=== PATIENT | male | born 1990 | race Caucasian/White ===

== ENCOUNTER 2016-08-29 14:30 | Emergency (ER) | payer SELFPAY ==
[2016-08-29 14:38] VITALS: BP 144/84
--- NOTE | 2016-08-29 15:22 | ER Document Report ---
ED Medical Screen (RME) - General Chief Complaint: Numbness Stated Complaint: CHEST CONGESTION,COLD,BACK PAIN,RIGHT ARM NUMBNESS Time Seen by Provider: 08/29/16 15:14 Notes: This 26-year-old pack-a-day smoker comes emergency room complaining of a 2-3 week history of congested cough. He reports he has developed a thick green- yellow sputum. He has pain in his chest with deep breath. He also reports a numbness to the right volar medial forearm going into the hand with numbness to the hand and fingers. There is also some pain associated with this. He also reports noticed some right facial numbness today. There is no motor deficit. Wheezes and rhonchi when the patient takes a deep breath and coughs. I have greeted and performed a rapid initial assessment of this patient. A comprehensive ED assessment and evaluation of the patient, analysis of test results and completion of the medical decision making process will be conducted by additional ED providers. TRAVEL OUTSIDE OF THE [place] IN LAST 30 DAYS: No - Related Data Allergies/Adverse Reactions: No Known Allergies Allergy (Verified 08/29/16 15:02) Past Medical History Pulmonary Medical History: Denies: Hx Asthma Neurological Medical History: Reports: Hx Migraine Renal/ Medical History: Denies: Hx Peritoneal Dialysis Past Surgical History: Reports: Hx Oral Surgery - Immunizations Hx Diphtheria, Pertussis, Tetanus Vaccination: No Physical Exam - Vital signs Vitals: Temp Pulse Resp BP Pulse Ox 98.3 F 90 14 144/84 H 99 08/29/16 14:36 08/29/16 14:36 08/29/16 14:36 08/29/16 14:36 08/29/16 14:36 Course - Vital Signs Vital signs: Temp Pulse Resp BP Pulse Ox 98.3 F 90 14 144/84 H 99 08/29/16 14:36 08/29/16 14:36 08/29/16 15:02 08/29/16 14:36 08/29/16 14:36
--- NOTE | 2016-08-29 15:37 | ER Document Report ---
ED General - General Chief Complaint: Numbness Stated Complaint: CHEST CONGESTION,COLD,BACK PAIN,RIGHT ARM NUMBNESS Time Seen by Provider: 08/29/16 15:14 Mode of Arrival: Ambulatory Information source: Patient Notes: Pt is a 26 year old male who presents to the ER today for right hand numbness after sleeping on it 2 nights ago. He denies injury, ever having this happen before, pain in neck. He also has cough, sinus pressure, runny nose x 2 weeks. He admits to chills but denies fever. He admits to some shortness of breath but no wheezing. TRAVEL OUTSIDE OF THE [place] IN LAST 30 DAYS: No - Related Data Allergies/Adverse Reactions: No Known Allergies Allergy (Verified 08/29/16 15:02) Past Medical History - General Information source: Patient - Social History Smoking Status: Unknown if Ever Smoked Family History: Reviewed & Not Pertinent Patient has suicidal ideation: No Patient has homicidal ideation: No Pulmonary Medical History: Denies: Hx Asthma Neurological Medical History: Reports: Hx Migraine Renal/ Medical History: Denies: Hx Peritoneal Dialysis Past Surgical History: Reports: Hx Oral Surgery - Immunizations Hx Diphtheria, Pertussis, Tetanus Vaccination: No Review of Systems - Review of Systems Constitutional: See HPI EENT: See HPI Cardiovascular: No symptoms reported Respiratory: See HPI Gastrointestinal: No symptoms reported Genitourinary: No symptoms reported Male Genitourinary: No symptoms reported Musculoskeletal: See HPI Skin: No symptoms reported Hematologic/Lymphatic: No symptoms reported Neurological/Psychological: See HPI Physical Exam - Vital signs Vitals: Temp Pulse Resp BP Pulse Ox 98.3 F 90 14 144/84 H 99 08/29/16 14:36 08/29/16 14:36 08/29/16 14:36 08/29/16 14:36 08/29/16 14:36 - Notes Notes: PHYSICAL EXAMINATION: GENERAL: Well-appearing and in no acute distress. HEAD: Atraumatic, normocephalic. EYES: Pupils equal round and reactive to light, extraocular movements intact, sclera anicteric, conjunctiva are normal. ENT: ear canals without erythema or foreign body, TMs pearly chowdhury with good bony landmarks, nares with mucoid discharge, oropharynx clear without exudates. Moist mucous membranes. NECK: Normal range of motion, supple without lymphadenopathy LUNGS: Cough, otherwise CTAB and equal. No wheezes rales or rhonchi. HEART: Regular rate and rhythm without murmurs ABDOMEN: Soft, no tenderness. No guarding, no rebound BACK: no vertebral tenderness, normal ROM GI/: no CVA tenderness EXTREMITIES: Good and equal strength bilaterally, good pens and pencils dipper strength bilaterally , normal sensation to both hands, normal range of motion, no pitting edema. No cyanosis. NEUROLOGICAL: Cranial nerves grossly intact. Normal sensory/motor exams. PSYCH: Normal mood, normal affect. SKIN: Warm, Dry, normal turgor, no rashes or lesions noted Course - Re-evaluation Re-evalutation: 08/29/16 16:33 pt holding right hand at a strange angle and flops it around making it appear numb, but has normal sensation and pens and pencils dipper strength is good and equal bilaterally. chest x ray clear. will place pt in brace here for possible carpal tunnel. - Vital Signs Vital signs: Temp Pulse Resp BP Pulse Ox 98.3 F 90 14 144/84 H 99 08/29/16 14:36 08/29/16 14:36 08/29/16 15:02 08/29/16 14:36 08/29/16 14:36 Procedures - Immobilization Right Hand Time completed: 16:37 Pre-Proc Neuro Vasc Exam: Normal Immobilizer type: Cock-up Performed by: RN Post-Proc Neuro Vasc Exam: Normal Alignment checked and good: Yes Discharge - Discharge Clinical Impression: Numbness and tingling in right hand, Bronchitis Back pain Qualifiers: Back pain location: back pain in unspecified location Chronicity: acute Back pain laterality: right Qualified Code(s): M54.9 - Dorsalgia, unspecified Sinusitis Qualifiers: Sinusitis location: other Chronicity: acute Recurrence: non-recurrent Qualified Code(s): J01.80 - Other acute sinusitis Condition: Stable Disposition: HOME, SELF-CARE Instructions: Carpal Tunnel Syndrome ([facility]), Bronchitis ([facility]), Sinusitis ([facility]) Additional Instructions: Return immediately for any new or worsening symptoms. Follow up with primary care provider, call tomorrow to make followup appointment. The neurologist if numbness is not resolved in 5 days. Prescriptions: Amoxicillin 500 mg PO TID #30 capsule Cyclobenzaprine HCl [Flexeril 10 mg Tablet] 10 mg PO TID PRN #15 tablet PRN Reason: Guaifenesin/D-Methorphan Hb [Robitussin Dm S-F Cough Syrup] 5 ml PO Q4 PRN #118 ml PRN Reason: Forms: Special Work Note Referrals: MARCIA RUDD MD [ACTIVE STAFF] - Follow up as needed
--- NOTE | 2016-08-29 15:55 | RADIOLOGY REPORT (SQ) ---
EXAM DESCRIPTION: CHEST PA/LAT COMPLETED DATE/TIME: 08/29/2016 3:42 pm REASON FOR STUDY: productive cough COMPARISON: None. EXAM PARAMETERS: NUMBER OF VIEWS: two views TECHNIQUE: Digital Frontal and Lateral radiographic views of the chest acquired. RADIATION DOSE: NA LIMITATIONS: none FINDINGS: LUNGS AND PLEURA: No opacities, masses or pneumothorax. No pleural effusion. MEDIASTINUM AND HILAR STRUCTURES: No masses or contour abnormalities. HEART AND VASCULAR STRUCTURES: Heart normal size. No evidence for failure. BONES: No acute findings. HARDWARE: None in the chest. OTHER: No other significant finding. IMPRESSION: NO SIGNIFICANT RADIOGRAPHIC FINDING IN THE CHEST. TECHNICAL DOCUMENTATION: JOB ID: [id number] [email or web address]- All Rights Reserved
[2016-08-29] MEDS ORDERED: GUAIFENESIN/D-METHORPHAN (200-20 MG) SYRUP 10 ML PO ONE (16:20)
[2016-08-29] MEDS ORDERED: AMOXICILLIN TRIHYDRATE 500 MG CAPSULE PO ONE (16:20)
[2016-08-29] MEDS ORDERED: CYCLOBENZAPRINE HCL 10 MG TABLET PO ONE (16:20)
[2016-08-29] MEDS ORDERED: ALBUTEROL SULFATE HFA (90 MCG/PUFF) 8 GM MDI (1 MDI/ER DISP) IH PRN (16:42)
== END 2016-08-29 16:57 | disposition home or self-care (01) ==
LOC: ER 14:30
DX: J40 Bronchitis, not specified as acute or chronic (principal); J01.80 Other acute sinusitis; M54.9 Dorsalgia, unspecified; R20.0 Anesthesia of skin; R09.89 Other specified symptoms and signs involving the circulatory and respiratory systems
CPT/HCPCS: 99284; 87070; 87205; 87077; 71020; L3984; J3490

== ENCOUNTER 2019-12-28 04:06 | Inpatient (IN) | payer SELFPAY ==
--- NOTE | 2019-12-28 04:35 | ER Document Report ---
ED General - General Cannot obtain history due to: Intoxicated TRAVEL OUTSIDE OF THE [place] IN LAST 30 DAYS: No <GAUDENCIO CAUSEY - Last Filed: 12/28/19 07:56> <WILLIAM WASSERMAN - Last Filed: 12/28/19 22:22> - General Chief Complaint: Possible Overdose Stated Complaint: POSSIBLE OVERDOSE Time Seen by Provider: 12/28/19 04:34 - HPI Notes: Patient is a 29 y/o male who was brought in by EMS for possible overdose of an unknown substance. Per EMS patient received bystander CPR and was unresponsive for an unknown amount of time. EMS administered Narcan 2 mg IV in the field. Upon arrival patient is tachycardic, diaphoretic and shivering. Patient does not recall the events of tonight but states he was drinking and had about 7 beers tonight. He reports vomiting, nausea, tinnitus and back pain but denies chest pain, shortness of breath, dizziness, and headache. Patient has a history of migraines. Patient endorses tobacco and alcohol use but denies recreational drug use. (GAUDENCIO CAUSEY) - Related Data Allergies/Adverse Reactions: No Known Allergies Allergy (Verified 08/29/16 15:02) Past Medical History - General Information source: Patient Cannot obtain history due to: Intoxicated - Social History Smoking Status: Current Every Day Smoker Frequency of alcohol use: Heavy Family History: Reviewed & Not Pertinent Pulmonary Medical History: Denies: Hx Asthma Neurological Medical History: Reports: Hx Migraine Renal/ Medical History: Denies: Hx Peritoneal Dialysis Past Surgical History: Reports: Hx Oral Surgery - Immunizations Hx Diphtheria, Pertussis, Tetanus Vaccination: No <GAUDENCIO CAUSEY - Last Filed: 12/28/19 07:56> Review of Systems - Review of Systems Constitutional: No symptoms reported EENT: See HPI Cardiovascular: No symptoms reported Respiratory: No symptoms reported Gastrointestinal: See HPI Genitourinary: No symptoms reported Male Genitourinary: No symptoms reported Musculoskeletal: See HPI Skin: No symptoms reported Hematologic/Lymphatic: No symptoms reported Neurological/Psychological: No symptoms reported <GAUDENCIO CASUEY - Last Filed: 12/28/19 07:56> Physical Exam <GAUDENCIO CAUSEY - Last Filed: 12/28/19 07:56> - Vital signs Vitals: Temp 97.2 F 12/28/19 04:06 - Notes Notes: PHYSICAL EXAMINATION: VITALS: Vitals reviewed and within normal limits. GENERAL: Well-appearing, well-nourished and in no acute distress. HEAD: Atraumatic, normocephalic. EYES: Pupils pinpoint, sclera anicteric, conjunctiva are normal. ENT: nares patent, oropharynx clear without exudates. Moist mucous membranes. NECK: Normal range of motion, supple without lymphadenopathy. LUNGS: Breath sounds clear to auscultation bilaterally and equal. No wheezes rales or rhonchi. HEART: Tachycardic with regular rhythm. No murmurs. ABDOMEN: Soft, nontender, normoactive bowel sounds. No guarding, no rebound. No masses appreciated. EXTREMITIES: Normal range of motion, no pitting or edema. No cyanosis. NEUROLOGICAL: No focal neurological deficits. Moves all extremities spontaneously and on command. PSYCH: Normal mood, normal affect. SKIN: Warm, Dry, normal turgor, no rashes or lesions noted. (GAUDENCIO CAUSEY) Course - Laboratory Result Diagrams: 12/28/19 05:05 12/28/19 05:05 - Diagnostic Test Radiology reviewed: Image reviewed, Reports reviewed <GAUDENCIO CAUSEY - Last Filed: 12/28/19 07:56> - Laboratory Result Diagrams: 12/28/19 05:05 12/28/19 05:05 <WILLIAM WASSERMAN - Last Filed: 12/28/19 22:22> - Re-evaluation Re-evalutation: Patient is a 29-year-old male who presents for possible overdose. Patient was brought in by EMS after being found unresponsive for an unknown amount of time. He had bystander CPR. EMS gave the patient Narcan 2 mg IV. Patient had one episode on vomiting in the ED. He denies suicidal ideation. 12/28/19 05:15 Patient has noted respiratory depression with RR 4-10 with a GCS of 15. Narcan 1mg IV given. Immediate improvement in respiratory rate and responsiveness noted after Narcan. Patient placed on 2L O2 via NC. Will continue to monitor patient for three more hours. 12/28/19 05:57 Patient's glucose 41. Notified by nursing. Dextrose 25mg IV ordered. 12/28/19 06:26 WBC elevated at 28.0. AST and ALT mildly elevated at 78 and 70. UA shows high amounts of glucose with a protein 30 and small blood. Serum alcohol of 22. CK mildly elevated at 325. Lipase normal at 114.9. CXR shows suspect small area of right upper lobe pneumonia versus pulmonary contusion. UDS unconfirmed positive for amphetamines and negative for opiates. Because patient was responsive to Narcan, patient likely used fentanyl as it would not show up on UDS. 12/28/19 06:30 Patient states he is feeling good but is just tired. RR is normal at 17 with mild tachycardia at 106. Vitals are otherwise normal. 12/28/19 06:34 Accucheck 119. 12/28/19 06:58 I consulted my attending physician, Dr. Rivero, concerning this patient. Based on his CXR findings, elevated WBC, and fluctuating glucose levels he recommends admission for observeration for aspiration pneumonia and opiate overdose. Unasyn 3mg IV started. Blood cultures ordered. Psych consult ordered. 12/28/19 07:[address] Rivero. Patient continues to be on 2L O2 via NC. Dr. Rivero recommended another liter of fluids which have been ordered. 12/28/19 07:[address] Rivas about admitting this patient. He asked for a CT head performed and he would call back. (GAUDENCIO CAUSEY) 12/28/19 09:[address] is negative. I called Dr. Rivas back. He would like to speak with Dr. Rivero. 12/28/19 09:35 Dr. Barksdale is agreeable to having patient be admitted to telemetry. (WILLIAM WASSERMAN) - Vital Signs Vital signs: Temp Pulse Resp BP Pulse Ox 97.9 F 89 17 117/66 97 12/28/19 16:38 12/28/19 16:38 12/28/19 16:38 12/28/19 16:38 12/28/19 16:38 - Laboratory Laboratory results interpreted by me: 12/28/19 12/28/19 12/28/19 05:05 05:05 05:27 WBC 28.0 H MCV 99 H RDW 14.7 H Plt Count 483 H Seg Neuts % (Manual) 85 H Lymphocytes % (Manual) 8 L Abs Neuts (Manual) 23.8 H Abs Basophils (Manual) 0.3 H Chloride 108 H Carbon Dioxide 19 L Glucose 41 L POC Glucose AST 78 H ALT 70 H Creatine Kinase CK-MB (CK-2) Urine Protein 30 H Urine Glucose (UA) >=500 H Urine Blood SMALL H Salicylates < 1.0 L Acetaminophen < 10 L 12/28/19 12/28/19 12/28/19 05:27 05:27 06:33 WBC MCV RDW Plt Count Seg Neuts % (Manual) Lymphocytes % (Manual) Abs Neuts (Manual) Abs Basophils (Manual) Chloride Carbon Dioxide Glucose POC Glucose 119 H AST ALT Creatine Kinase 325 H CK-MB (CK-2) 5.78 H Urine Protein Urine Glucose (UA) Urine Blood Salicylates Acetaminophen - Diagnostic Test Radiology results interpreted by me: Chest X-Ray 12/28/19 05:01 IMPRESSION: Suspect small area of right upper lobe pneumonia versus pulmonary contusion. (GAUDENCIO CAUSEY) - EKG Interpretation by Me Additional EKG results interpreted by me: Sinus tachycardia with a rate of 115. QTc 493. Borderline right axis deviation. No T wave inversions or ST segment changes in consecutive leads. (GAUDENCIO CAUSEY) Discharge <GAUDENCIO CAUSEY - Last Filed: 12/28/19 07:56> - Discharge Admitting Provider: Shamir (Hospitalist) Unit Admitted: Telemetry <WILLIAM WASSERMAN - Last Filed: 12/28/19 22:22> - Discharge Clinical Impression: Hypoglycemia, Tachycardia, Hypoxia Opiate overdose Qualifiers: Encounter type: initial encounter Injury intent: accidental or unintentional Qualified Code(s): T40.601A - Poisoning by unspecified narcotics, accidental (unintentional), initial encounter Aspiration pneumonia Qualifiers: Aspiration pneumonia type: unspecified Laterality: right Lung location: upper lobe of lung Qualified Code(s): J69.0 - Pneumonitis due to inhalation of food and vomit Condition: Stable Disposition: ADMITTED INPATIENT
[2019-12-28] MEDS ORDERED: ONDANSETRON HCL INJ/PF 4 MG/2 ML SDV IV ONE (04:42)
[2019-12-28] MEDS ORDERED: NALOXONE HCL INJ 2 MG/2 ML DISP.SYRIN ONE (05:11)
[2019-12-28] MEDS ORDERED: NALOXONE HCL INJ 2 MG/2 ML DISP.SYRIN IV ONE (05:12)
[2019-12-28] MEDS ORDERED: NORMAL SALINE 1000 ML 1,000 ML IV ONE ×2 (05:15→07:20)
[2019-12-28 05:33] LABS: HEMATOCRIT 45.3 % (37.9-51.0); MEAN CORPUSCULAR HGB CONC 33.1 g/dL (32.0-36.0); MEAN CORPUSCULAR VOLUME 99 fl (80-97); PLATELET COUNT 483 10^3/uL (150-450); RED BLOOD COUNT 4.56 10^6/uL (4.35-5.55); RED CELL DISTRIBUTION WIDTH 14.7 % (11.5-14.0)
[2019-12-28 05:40] LABS: APPEARANCE,URINE CLEAR; BILIRUBIN,URINE NEGATIVE (NEGATIVE); COLOR,URINE STRAW; GLUCOSE, URINE >=500 mg/dL (NEGATIVE); KETONES,URINE NEGATIVE (NEGATIVE); LEUKOCYTE ESTERASE,URINE NEGATIVE (NEGATIVE); NITRITE,URINE NEGATIVE (NEGATIVE); PROTEIN,URINE 30 mg/dL (NEGATIVE); URINE SPECIFIC GRAVITY 1.005; UROBILINOGEN,URINE NEGATIVE mg/dL (<2.0)
[2019-12-28 05:56] LABS: ALCOHOL 22 mg/dL (NONE DETECTED); ALKALINE PHOSPHATASE 87 U/L (38-126); ANION GAP 16 (5-19); ASPARTATE AMINO TRANSFERASE 78 U/L (17-59); BILIRUBIN,DIRECT 0.3 mg/dL (0.0-0.4); BILIRUBIN,TOTAL 0.4 mg/dL (0.2-1.3); BLOOD UREA NITROGEN 12 mg/dL (7-20); CALCIUM 9.3 mg/dL (8.4-10.2); CARBON DIOXIDE 19 mmol/L (22-30); CHLORIDE 108 mmol/L (98-107); POTASSIUM 4.5 mmol/L (3.6-5.0); TOTAL PROTEIN 7.6 g/dL (6.3-8.2)
[2019-12-28 05:57] LABS: ACETAMINOPHEN < 10 ug/mL (10-30); SALICYLATE < 1.0 mg/dL (2.0-20.0)
[2019-12-28 05:58] LABS: ABSOLUTE LYMPHOCYTES# (MANUAL) 2.5 10^3/uL (0.5-4.7); ABSOLUTE MONOCYTES # (MANUAL) 1.4 10^3/uL (0.1-1.4); BASOPHILS % (MANUAL) 1 % (0-2); EOSINOPHILS % (MANUAL) 0 % (0-6); GLUCOSE 41 mg/dL (75-110); LYMPHOCYTES % (MANUAL) 8 % (13-45); MONOCYTES % (MANUAL) 5 % (3-13); SEGMENTED NEUTROPHILS % (MAN) 85 % (42-78); TOTAL CELLS COUNTED 100
[2019-12-28 05:59] LABS: PLATELET COMMENT INCREASED; RBC MORPHOLOGY COMMENT NORMO-CYTIC/CHROMIC
[2019-12-28] MEDS ORDERED: DEXTROSE 50%-WATER 25 GM/50 ML DISP.SYRIN IV ONE (05:59)
[2019-12-28 06:06] LABS: URINE BARBITURATES SCREEN NEGATIVE; URINE BENZODIAZEPINES SCREEN NEGATIVE; URINE COCAINE SCREEN NEGATIVE; URINE MARIJUANA (THC) SCREEN NEGATIVE; URINE METHADONE SCREEN NEGATIVE; URINE PHENCYCLIDINE SCREEN NEGATIVE
[2019-12-28 06:14] LABS: URINE AMPHETAMINES SCREEN UNCONFIRMED POSITIVE
--- NOTE | 2019-12-28 06:42 | RADIOLOGY REPORT (SQ) ---
CLINICAL HISTORY: overdose, CPR COMPARISON: None. TECHNIQUE: XR CHEST 2 VIEWS 12/28/2019 5:01 AM CDT FINDINGS: Cardiac silhouette is normal in size. There is minimal right upper lobe airspace disease. There is no pleural effusion. There is no pneumothorax. There are no acute osseous findings. IMPRESSION: Suspect small area of right upper lobe pneumonia versus pulmonary contusion.
[2019-12-28] MEDS ORDERED: AMPICILLIN SOD/SULBACTAM 3 GM VIAL IV ONE (07:00)
--- NOTE | 2019-12-28 07:27 | ER Document Report ---
Doctor's Note Notes: 12/28/19 07:22 This is a 29-year-old male I was asked to see along with midlevel provider. I have reviewed the chart in detail and also personally interviewed and examined the patient at the bedside at this time. Briefly this is a 29-year-old male brought in by EMS after taking an unknown substance resulting in a possible cardiopulmonary arrest. Bystanders reportedly did CPR briefly. When EMS arrived he had a pulse but was having apnea and they they gave him Narcan with rapid improvement. Since arrival here he has had a second episode of respiratory depression and required additional administration of Narcan. Currently this man is hemodynamically stable is awake and alert. His speech is mildly slurred and he has mild lid ptosis. His skin is cool and moist. His pupils are equal and reactive he has a deep rattling cough but does not appear in respiratory distress. He has some scattered rhonchi most prominently over the right upper lung field. His cardiac rhythm is regular. His abdomen is soft and nontender.His neurologic exam is nonfocal. He has no obvious needle tracks present. Patient was transiently hypoglycemic here. He has a high white count. Chest x- ray is reviewed and shows a patchy right upper lobe infiltrate. Radiologist read this as possible early pneumonia versus pulmonary contusion. Based on the history there was no mechanism of high-energy trauma to the chest and so I think this is probably a mild aspiration. I am recommending outpatient be presented to the hospitalist service for admission to observation status. He should remain on IV fluids and receive IV antibiotics and low flow oxygen. He denies any suicidal or homicidal ideation or hallucinations at this time and admits that he abuses drugs although he is evasive when asked specifically what he was taking. Psychiatry consultation will be requested although currently he does not meet criteria for IVC.
--- NOTE | 2019-12-28 08:37 | RADIOLOGY REPORT (SQ) ---
EXAM DESCRIPTION: CT HEAD WITHOUT IMAGES COMPLETED DATE/TIME: 12/28/2019 8:24 am REASON FOR STUDY: unresponsive, overdose COMPARISON: 03/24/2009 TECHNIQUE: Axial images acquired through the brain without intravenous contrast. Images reviewed wi th bone, brain and subdural windows. Additional sagittal and coronal reconstructions were generated. Images stored on PACS. All CT scanners at this facility use dose modulation, iterative reconstruction, and/or weight based d osing when appropriate to reduce radiation dose to as low as reasonably achievable (ALARA). [facility]: Dose Right [facility]: CareDose [facility]: Dose Right [facility]: Teradose 4D [facility]: [employer] RADIATION DOSE: CT Rad equipment meets quality standard of care and radiation dose reduction techniq ues were employed. CTDIvol: 53.2 mGy. DLP: 991 mGy-cm. mGy. LIMITATIONS: None. FINDINGS: VENTRICLES: Normal size and contour. CEREBRUM: No masses. No hemorrhage. No midline shift. No evidence for acute infarction. Normal gra y/white matter differentiation. No areas of low density in the white matter. CEREBELLUM: No masses. No hemorrhage. No alteration of density. No evidence for acute infarction. EXTRAAXIAL SPACES: No fluid collections. No masses. ORBITS AND GLOBE: No intra- or extraconal masses. Normal contour of globe without masses. CALVARIUM: No fracture. PARANASAL SINUSES: No fluid or mucosal thickening. SOFT TISSUES: No mass or hematoma. OTHER: No other significant finding. IMPRESSION: NORMAL BRAIN CT WITHOUT CONTRAST. EVIDENCE OF ACUTE STROKE: NO. COMMENT: Quality ID # [id number]: Final reports with documentation of one or more dose reduction techniques (e.g., Automated exposure control, adjustment of the mA and/or kV according to patient size, use of iterative reconstruction technique) TECHNICAL DOCUMENTATION: JOB ID: [id number] 2010 [employer]- All Rights Reserved Reading location - IP/workstation name: [email or web address]
[2019-12-28] MEDS ORDERED: NORMAL SALINE 1000 ML 1,000 ML IV PRN (10:11)
[2019-12-28] MEDS ORDERED: IPRATROPIUM/ALBUTEROL 0.5-2.5 MG/3 ML AMPUL NEB ONE (10:11)
[2019-12-28] MEDS ORDERED: ONDANSETRON HCL INJ/PF 4 MG/2 ML SDV IV PRN (10:11)
[2019-12-28] MEDS ORDERED: ACETAMINOPHEN 325 MG TABLET PO PRN (10:11)
[2019-12-28 10:57] LABS: CREATINE KINASE MB 5.78 ng/mL (<4.55)
--- NOTE | 2019-12-28 11:04 | RADIOLOGY REPORT (SQ) ---
EXAM DESCRIPTION: CT CHEST WITHOUT IMAGES COMPLETED DATE/TIME: 12/28/2019 10:51 am REASON FOR STUDY: pneumonia COMPARISON: 11/26/2015 TECHNIQUE: CT scan performed of the chest without intravenous contrast. Images reviewed with lung, soft tissue and bone windows. Reconstructed coronal and sagittal MPR images reviewed. All images st ored on PACS. All CT scanners at this facility use dose modulation, iterative reconstruction, and/or weight based d osing when appropriate to reduce radiation dose to as low as reasonably achievable (ALARA). [facility]: Dose Right [facility]: CareDose [facility]: Dose Right [facility]: Teradose 4D [facility]: [employer] RADIATION DOSE: CT Rad equipment meets quality standard of care and radiation dose reduction techniq ues were employed. CTDIvol: 10.3 mGy. DLP: 428 mGy-cm. mGy. LIMITATIONS: No technical limitations. FINDINGS: LUNGS AND PLEURA: Patchy ground-glass attenuation right upper lobe and to lesser degree le ft upper lobe and superior segment right lower lobe. Dependent atelectasis in both lower lobes. No air bronchograms. No effusions. HILAR AND MEDIASTINAL STRUCTURES: No identified masses or abnormal nodes. No obvious aneurysm. HEART AND VASCULAR STRUCTURES: No aneurysm. No pericardial effusion. UPPER ABDOMEN: No significant findings. Limited exam. THYROID AND OTHER SOFT TISSUES: No masses. No adenopathy. BONES: No significant finding. HARDWARE: None in the chest. OTHER: No other significant findings. IMPRESSION: Viral or atypical pneumonia. TECHNICAL DOCUMENTATION: JOB ID: [id number] Quality ID # [id number]: Final reports with documentation of one or more dose reduction techniques (e.g., Au tomated exposure control, adjustment of the mA and/or kV according to patient size, use of iterative reconstruction technique) 2010 [employer]- All Rights Reserved Reading location - IP/workstation name: [email or web address]
[2019-12-28 11:05] LABS: TROPONIN I 0.195 ng/mL
[2019-12-28] MEDS ORDERED: NORMAL SALINE 1000 ML 1,000 ML with POTASSIUM CHLORIDE 20 MEQ, MAGNESIUM SULFATE 8 MEQ,... IV SCH ×5 (12:00)
[2019-12-28 12:39] LABS: CREATINE KINASE MB 16.1 ng/mL (<4.55)
[2019-12-28 12:46] LABS: TROPONIN I 0.404 ng/mL
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
--- NOTE | 2019-12-28 13:42 | PDOC H&P ---
History of Present Illness Admission Date/PCP: 12/28/19 10:31 Patient complains of: Brought to the emergency room by EMS after attempted CPR by the bystander. History of Present Illness: LIAT KOCH JR is a 29 year old male with no significant past medical history except for alcohol abuse was found unresponsive and CPR was started by the bystander. There is a question about cardiopulmonary arrest. EMS when they did pick him up and gave him Narcan. Initially is apneic then he recovered. In the emergency room is still drowsy and lethargic. Another dose of of Narcan was given. Patient became more alert more awake. Lab investigations indicate 12 WBCs of 28,000, chest x-ray suggestive of pneumonia. Medical consult was requested. CT head was negative. The events prior to the ER arrival like unresponsiveness, apneic state, attempted CPR, possible cardiopulmonary arrest is not presented to me or to Dr. Barksdale by the ER nurse practitioner Cristopher and Dr Rivero when they called to present the case for admission. Past Medical History Pulmonary Medical History: Denies: Asthma Neurological Medical History: Reports: Migraine Endocrine Medical History: Reports: None Renal/ Medical History: Reports: None Malignancy Medical History: Reports: None GI Medical History: Reports: None Musculoskeltal Medical History: Reports: None Skin Medical History: Reports: None Psychiatric Medical History: Reports: None Traumatic Medical History: Reports: None Hematology: Reports: None Past Surgical History Past Surgical History: Reports: None Social History Smoking Status: Current Every Day Smoker Electronic Cigarette use?: No Frequency of Alcohol Use: Heavy Hx Recreational Drug Use: No - Advance Directive Resuscitation Status: Full Code Family History Family History: Reviewed & Not Pertinent Parental Family History Reviewed: Yes - Hypertension Children Family History Reviewed: Yes Sibling(s) Family History Reviewed.: Yes Medication/Allergy Home Medications: No Home Medications 12/28/19 Allergies/Adverse Reactions: No Known Allergies Allergy (Verified 08/29/16 15:02) Review of Systems Constitutional: ABSENT: fever(s), headache(s), night sweats, weakness Eyes: ABSENT: visual disturbances Ears: ABSENT: hearing changes Nose, Mouth, and Throat: ABSENT: sore throat Cardiovascular: ABSENT: edema, orthropnea, palpitations Respiratory: ABSENT: dyspnea, hemoptysis Gastrointestinal: ABSENT: abdominal pain, hematemesis Genitourinary: ABSENT: dysuria, hematuria Neurological: PRESENT: syncope, other - Patient was found unresponsive CPR was started by the bystander. At the time of my examination patient alert awake oriented. Endocrine: ABSENT: cold intolerance, heat intolerance, polydipsia, polyuria Physical Exam Vital Signs: Temp Pulse Resp BP Pulse Ox 97.2 F 18 118/72 100 12/28/19 04:06 12/28/19 12:01 12/28/19 12:01 12/28/19 12:01 Intake & Output 12/27/19 12/28/19 12/29/19 06:59 06:59 06:59 Intake Total 1000 1092 Balance 1000 1092 Weight 87.1 kg General appearance: PRESENT: no acute distress, well-developed, well-nourished Head exam: PRESENT: atraumatic Eye exam: PRESENT: PERRLA Mouth exam: PRESENT: moist, tongue midline Throat exam: PRESENT: tonsillogmegaly Neck exam: ABSENT: carotid bruit, JVD, lymphadenopathy, thyromegaly Respiratory exam: PRESENT: decreased breath sounds Cardiovascular exam: PRESENT: RRR. ABSENT: diastolic murmur, rubs, systolic murmur GI/Abdominal exam: PRESENT: normal bowel sounds, soft. ABSENT: distended, guarding, mass, organolmegaly, rebound, tenderness Rectal exam: PRESENT: deferred Extremities exam: PRESENT: full ROM. ABSENT: calf tenderness, clubbing, pedal edema Neurological exam: PRESENT: alert, awake, oriented to person, oriented to place, oriented to time, oriented to situation, CN II-XII grossly intact. ABSENT: motor sensory deficit Psychiatric exam: PRESENT: appropriate affect, normal mood. ABSENT: homicidal ideation, suicidal ideation Results Laboratory Results: 12/28/19 05:05 12/28/19 05:05 12/28/19 12/28/19 12/28/19 05:05 05:05 05:27 WBC 28.0 H RBC 4.56 Hgb 15.0 Hct 45.3 MCV 99 H MCH 33.0 MCHC 33.1 RDW 14.7 H Plt Count 483 H Seg Neutrophils % Not Reportable Sodium 143.3 Potassium 4.5 Chloride 108 H Carbon Dioxide 19 L Anion Gap 16 BUN 12 Creatinine 1.17 Est GFR ( Amer) > 60 Glucose 41 L Calcium 9.3 Total Bilirubin 0.4 AST 78 H Alkaline Phosphatase 87 Total Protein 7.6 Albumin 5.0 Lipase Urine Color STRAW Urine Appearance CLEAR Urine pH 6.0 Ur Specific [place] 1.005 Urine Protein 30 H Urine Glucose (UA) >=500 H Urine Ketones NEGATIVE Urine Blood SMALL H Urine Nitrite NEGATIVE Ur Leukocyte Esterase NEGATIVE Urine WBC (Auto) 1 Urine RBC (Auto) 0 12/28/19 05:27 WBC RBC Hgb Hct MCV MCH MCHC RDW Plt Count Seg Neutrophils % Sodium Potassium Chloride Carbon Dioxide Anion Gap BUN Creatinine Est GFR ( Amer) Glucose Calcium Total Bilirubin AST Alkaline Phosphatase Total Protein Albumin Lipase 114.9 Urine Color Urine Appearance Urine pH Ur Specific [place] Urine Protein Urine Glucose (UA) Urine Ketones Urine Blood Urine Nitrite Ur Leukocyte Esterase Urine WBC (Auto) Urine RBC (Auto) 12/28/19 12/28/19 12/28/19 05:27 05:27 11:45 Creatine Kinase 325 H CK-MB (CK-2) 5.78 H 16.10 H Troponin I 0.195 0.404 Impressions: Chest CT 12/28/19 00:00 IMPRESSION: Viral or atypical pneumonia. Chest X-Ray 12/28/19 05:01 IMPRESSION: Suspect small area of right upper lobe pneumonia versus pulmonary contusion. Head CT 12/28/19 07:39 IMPRESSION: NORMAL BRAIN CT WITHOUT CONTRAST. EVIDENCE OF ACUTE STROKE: NO. Assessment and Plan - Diagnosis (1) Aspiration pneumonia Qualifiers: Aspiration pneumonia type: unspecified Laterality: right Lung location: upper lobe of lung Qualified Code(s): J69.0 - Pneumonitis due to inhalation of food and vomit Is this a current diagnosis for this admission?: Yes Plan: 12/28/2019-patient admitted to [facility] for possible aspiration pneumonia. To start him on IV vancomycin and Zosyn. Blood cultures are requested. Pulse ox is 100% on room air at the time of my examination. (2) Opiate overdose Qualifiers: Encounter type: initial encounter Injury intent: accidental or unintentional Qualified Code(s): T40.601A - Poisoning by unspecified narcotics, accidental (unintentional), initial encounter Is this a current diagnosis for this admission?: No Plan: 12/28/2019-patient found unresponsive and CPR was started by the bystander there is a possible cardiac arrest. Urine reaction is positive for alcohol and Adderall. Psych consult was requested. (3) Alcohol abuse Is this a current diagnosis for this admission?: Yes Plan: 12/28/2019-patient has history of alcohol abuse and Ativan IV 2 mg every 2 hours as needed for agitation and to watch for the DTs. Counseling was provided. (4) Elevated troponin Is this a current diagnosis for this admission?: Yes Plan: 12/28/2019-initial troponin is 0.19-second troponin 0.4. Elevated troponin most likely secondary to attempt of CPR prior to ER arrival. (5) Hypoxia Is this a current diagnosis for this admission?: Yes Plan: 12/28/2019-patient admitted with acute hypoxic respiratory failure requiring oxygen supplementation initially. Most likely secondary to underlying aspirati on pneumonia. Started on IV Zosyn and vancomycin. Pulse ox is 100% on room air at this time. - Time Anticipated Discharge Disposition: Home, Self Care Anticipated Discharge Timeframe: within 72 hours
[2019-12-28] MEDS ORDERED: PIPERACILLIN/TAZOBACTAM 3.375 GM VIAL IV SCH (14:00)
[2019-12-28] MEDS: PIPERACILLIN SODIUM/TAZOBACTAM 3.375 GM in NORMAL SALINE 100 ML IV SCH (17:10)
[2019-12-28] MEDS: PANTOPRAZOLE SODIUM 40 MG TABLET.DR PO SCH (17:10)
[2019-12-28] MEDS: VANCOMYCIN HCL 1,250 MG in DEXTROSE 5%-WATER 250 ML IV SCH (18:33)
[2019-12-28 18:57] LABS: CREATINE KINASE MB 14.7 ng/mL (<4.55)
[2019-12-28 19:08] LABS: TROPONIN I 0.416 ng/mL
[2019-12-28 20:17] LABS: APPEARANCE,URINE CLEAR; BILIRUBIN,URINE NEGATIVE (NEGATIVE); COLOR,URINE YELLOW; GLUCOSE, URINE NEGATIVE (NEGATIVE); KETONES,URINE NEGATIVE (NEGATIVE); LEUKOCYTE ESTERASE,URINE NEGATIVE (NEGATIVE); NITRITE,URINE NEGATIVE (NEGATIVE); PROTEIN,URINE NEGATIVE (NEGATIVE); UROBILINOGEN,URINE NEGATIVE mg/dL (<2.0)
[2019-12-28] MEDS: NICOTINE 21 MG/24 HR PATCH.TD24 TD PRN (20:31)
--- NOTE | 2019-12-28 21:30 | EKG REPORT ---
SEVERITY:- ABNORMAL ECG - SINUS TACHYCARDIA BORDERLINE RIGHT AXIS DEVIATION INFERIOR Q WAVES, PROBABLY NORMAL VARIATION PROLONGED QT INTERVAL : Confirmed by: Latoya Rodríguez MD 28-Dec-2019 21:29:20
[2019-12-28] MEDS: ATORVASTATIN CALCIUM 20 MG TABLET PO SCH (21:42)
[2019-12-28] MEDS: LORAZEPAM INJ 2 MG/1 ML VIAL IV PRN (21:57)
[2019-12-28] MEDS ORDERED: ENOXAPARIN SODIUM INJ 100 MG/1 ML DISP.SYRIN SUBCUT SCH (22:00)
[2019-12-29] MEDS: PIPERACILLIN SODIUM/TAZOBACTAM 3.375 GM in NORMAL SALINE 100 ML IV SCH ×5 (01:09→23:53)
[2019-12-29] MEDS: PANTOPRAZOLE SODIUM 40 MG TABLET.DR PO SCH ×2 (05:08→16:14)
[2019-12-29] MEDS: VANCOMYCIN HCL 1,250 MG in DEXTROSE 5%-WATER 250 ML IV SCH ×2 (05:08→19:15)
[2019-12-29 06:41] LABS: HEMATOCRIT 40.7 % (37.9-51.0); HEMOGLOBIN 14.2 g/dL (13.5-17.0); MEAN CORPUSCULAR HEMOGLOBIN 33.6 pg (27.0-33.4); MEAN CORPUSCULAR HGB CONC 34.8 g/dL (32.0-36.0); MEAN CORPUSCULAR VOLUME 97 fl (80-97); PLATELET COUNT 368 10^3/uL (150-450); RED BLOOD COUNT 4.22 10^6/uL (4.35-5.55); RED CELL DISTRIBUTION WIDTH 14.5 % (11.5-14.0); WHITE BLOOD COUNT 11.8 10^3/uL (4.0-10.5)
[2019-12-29 07:04] LABS: ALBUMIN 3.9 g/dL (3.5-5.0); ALKALINE PHOSPHATASE 77 U/L (38-126); ANION GAP 8 (5-19); ASPARTATE AMINO TRANSFERASE 56 U/L (17-59); BILIRUBIN,DIRECT 0.3 mg/dL (0.0-0.4); BLOOD UREA NITROGEN 9 mg/dL (7-20); CALCIUM 9.1 mg/dL (8.4-10.2); CARBON DIOXIDE 23 mmol/L (22-30); CHLORIDE 108 mmol/L (98-107); GLUCOSE 100 mg/dL (75-110); POTASSIUM 4.2 mmol/L (3.6-5.0); TOTAL PROTEIN 6.1 g/dL (6.3-8.2)
--- NOTE | 2019-12-29 09:48 | PDOC PROGRESS REPORT ---
Subjective Progress Note for:: 12/29/19 Subjective:: 29 year old male with no significant past medical history except for alcohol abuse was found unresponsive and CPR was started by the bystander. There is a question about cardiopulmonary arrest. EMS when they did pick him up and gave him Narcan. Initially is apneic then he recovered. In the emergency room is still drowsy and lethargic. Another dose of of Narcan was given. Patient became more alert more awake. Lab investigations indicate 12 WBCs of 28,000, chest x-ray suggestive of pneumonia. Medical consult was requested. CT head was negative. The events prior to the ER arrival like unresponsiveness, apneic state, attempted CPR, possible cardiopulmonary arrest is not presented to me or to Dr. Barksdale by the ER nurse practitioner Cristopher and Dr Rivero when they called to present the case for admission. 12/29/[id number]-biip-old male admitted with drug overdose. No acute events since admission. Doing well. Patient is on CIWA protocol. Reason For Visit: OPIATE OVERDOSE,ASPIRATION PNEUMONIA,HYPOGLYCEMIA Physical Exam Vital Signs: Temp Pulse Resp BP Pulse Ox 97.9 F 94 20 134/91 H 98 12/29/19 03:26 12/29/19 03:26 12/29/19 03:26 12/29/19 03:26 12/29/19 03:26 Intake & Output 12/28/19 12/29/19 12/30/19 06:59 06:59 06:59 Intake Total 1000 3440 Balance 1000 3440 Weight 87.1 kg 87.1 kg General appearance: PRESENT: no acute distress, well-developed Head exam: PRESENT: atraumatic Eye exam: PRESENT: PERRLA Ear exam: PRESENT: normal external ear exam Mouth exam: PRESENT: neck supple Neck exam: ABSENT: carotid bruit, JVD, lymphadenopathy, thyromegaly Respiratory exam: PRESENT: clear to auscultation kane. ABSENT: rales, rhonchi, wheezes Cardiovascular exam: PRESENT: RRR. ABSENT: diastolic murmur, rubs, systolic murmur GI/Abdominal exam: PRESENT: normal bowel sounds, soft. ABSENT: distended, guarding, mass, organolmegaly, rebound, tenderness Rectal exam: PRESENT: deferred Extremities exam: PRESENT: full ROM. ABSENT: calf tenderness, clubbing, pedal edema Neurological exam: PRESENT: alert, awake, oriented to person, oriented to place, oriented to time, oriented to situation, CN II-XII grossly intact. ABSENT: motor sensory deficit Psychiatric exam: PRESENT: appropriate affect, normal mood. ABSENT: homicidal ideation, suicidal ideation Results Laboratory Results: 12/29/19 06:20 12/29/19 06:20 12/28/19 12/29/19 12/29/19 16:11 06:20 06:20 WBC 11.8 H RBC 4.22 L Hgb 14.2 Hct 40.7 MCV 97 MCH 33.6 H MCHC 34.8 RDW 14.5 H Plt Count 368 Sodium 138.6 Potassium 4.2 Chloride 108 H Carbon Dioxide 23 Anion Gap 8 BUN 9 Creatinine 0.86 Est GFR ( Amer) > 60 Glucose 100 Calcium 9.1 Magnesium 2.1 Total Bilirubin 1.0 AST 56 Alkaline Phosphatase 77 Total Protein 6.1 L Albumin 3.9 TSH Urine Color YELLOW Urine Appearance CLEAR Urine pH 6.0 Ur Specific [place] 1.010 Urine Protein NEGATIVE Urine Glucose (UA) NEGATIVE Urine Ketones NEGATIVE Urine Blood NEGATIVE Urine Nitrite NEGATIVE Ur Leukocyte Esterase NEGATIVE Urine WBC (Auto) 0 12/29/19 06:20 WBC RBC Hgb Hct MCV MCH MCHC RDW Plt Count Sodium Potassium Chloride Carbon Dioxide Anion Gap BUN Creatinine Est GFR ( Amer) Glucose Calcium Magnesium Total Bilirubin AST Alkaline Phosphatase Total Protein Albumin TSH 1.12 Urine Color Urine Appearance Urine pH Ur Specific [place] Urine Protein Urine Glucose (UA) Urine Ketones Urine Blood Urine Nitrite Ur Leukocyte Esterase Urine WBC (Auto) 12/28/19 12/28/19 12/28/19 05:27 05:27 11:45 Creatine Kinase 325 H CK-MB (CK-2) 5.78 H 16.10 H Troponin I 0.195 0.404 NT-Pro-B Natriuret Pep 12/28/19 12/29/19 12/29/19 17:59 06:20 06:20 Creatine Kinase CK-MB (CK-2) 14.70 H Troponin I 0.416 0.212 NT-Pro-B Natriuret Pep 622 H Impressions: Chest CT 12/28/19 00:00 IMPRESSION: Viral or atypical pneumonia. Chest X-Ray 12/28/19 05:01 IMPRESSION: Suspect small area of right upper lobe pneumonia versus pulmonary contusion. Head CT 12/28/19 07:39 IMPRESSION: NORMAL BRAIN CT WITHOUT CONTRAST. EVIDENCE OF ACUTE STROKE: NO. Assessment and Plan - Diagnosis (1) Aspiration pneumonia Qualifiers: Aspiration pneumonia type: unspecified Laterality: right Lung location: upper lobe of lung Qualified Code(s): J69.0 - Pneumonitis due to inhalation of food and vomit Is this a current diagnosis for this admission?: Yes Plan: 12/28/2019-patient admitted to [facility] for possible aspiration pneumonia. To start him on IV vancomycin and Zosyn. Blood cultures are requested. Pulse ox is 100% on room air at the time of my examination. 12/29/2019-patient admitted with aspiration pneumonia. WBC count is 11,800. P atient is on IV Zosyn and vancomycin. Cultures are negative so far. Plan is to continue the present management at this time. (2) Opiate overdose Qualifiers: Encounter type: initial encounter Injury intent: accidental or uninten tional Qualified Code(s): T40.601A - Poisoning by unspecified narcotics, accidental (unintentional), initial encounter Is this a current diagnosis for this admission?: No Plan: 12/28/2019-patient found unresponsive and CPR was started by the bystander there is a possible cardiac arrest. Urine reaction is positive for alcohol and Adderall. Psych consult was requested. (3) Alcohol abuse Is this a current diagnosis for this admission?: Yes Plan: 12/28/2019-patient has history of alcohol abuse and Ativan IV 2 mg every 2 hours as needed for agitation and to watch for the DTs. Counseling was provided. (4) Elevated troponin Is this a current diagnosis for this admission?: Yes Plan: 12/28/2019-initial troponin is 0.19-second troponin 0.4. Elevated troponin most likely secondary to attempt of CPR prior to ER arrival. 12/29/2019-troponin is stable. Elevated troponin most likely secondary to hypoxia, CPR done by the bystander outside the hospital. (5) Hypoxia Is this a current diagnosis for this admission?: Yes Plan: 12/28/2019-patient admitted with acute hypoxic respiratory failure requiring oxygen supplementation initially. Most likely secondary to underlying aspiration pneumonia. Started on IV Zosyn and vancomycin. Pulse ox is 100% on room air at this time. 12/29/2019-acute respiratory failure with hypoxia resolving. Pulse ox is 98% 2 L today. - Time Anticipated Discharge Disposition: Home, Self Care Anticipated Discharge Timeframe: within 48 hours
[2019-12-29] MEDS ORDERED: VANCOMYCIN HCL INJ 1000 MG VIAL IV SCH (10:00)
[2019-12-29] MEDS ORDERED: ENOXAPARIN SODIUM INJ 40 MG/0.4 ML DISP.SYRIN SUBCUT SCH (10:00)
[2019-12-29] MEDS: ENOXAPARIN SODIUM INJ 40 MG/0.4 ML DISP.SYRIN SUBCUT SCH (10:11)
[2019-12-29] MEDS: LORAZEPAM INJ 2 MG/1 ML VIAL IV PRN ×2 (10:11→23:11)
[2019-12-29] MEDS: ASPIRIN 325 MG TABLET PO SCH (10:14)
[2019-12-29] MEDS: ATORVASTATIN CALCIUM 20 MG TABLET PO SCH (23:12)
[2019-12-29] MEDS: NICOTINE 21 MG/24 HR PATCH.TD24 TD PRN (23:12)
[2019-12-30] MEDS: PANTOPRAZOLE SODIUM 40 MG TABLET.DR PO SCH (05:43)
[2019-12-30] MEDS: VANCOMYCIN HCL 1,250 MG in DEXTROSE 5%-WATER 250 ML IV SCH (05:43)
[2019-12-30] MEDS: PIPERACILLIN SODIUM/TAZOBACTAM 3.375 GM in NORMAL SALINE 100 ML IV SCH (05:43)
[2019-12-30 06:30] LABS: VANCOMYCIN,TROUGH 7.6 ug/mL (5.0-20.0)
[2019-12-30 07:24] LABS: ABSOLUTE BASOPHILS # (AUTO) 0.1 10^3/uL (0.0-0.2); ABSOLUTE EOSINOPHILS # (AUTO) 0.4 10^3/uL (0.0-0.6); ABSOLUTE LYMPHOCYTES (AUTO) 3.4 10^3/uL (0.5-4.7); ABSOLUTE NEUT (AUTO) 5.1 10^3/uL (1.7-8.2); BASOPHILS % (AUTO) 0.8 % (0-2); EOSINOPHILS % (AUTO) 4.1 % (0-6); HEMATOCRIT 41.2 % (37.9-51.0); HEMOGLOBIN 14.3 g/dL (13.5-17.0); LYMPHOCYTES % (AUTO) 34.1 % (13-45); MEAN CORPUSCULAR HEMOGLOBIN 33.8 pg (27.0-33.4); MEAN CORPUSCULAR HGB CONC 34.8 g/dL (32.0-36.0); MEAN CORPUSCULAR VOLUME 97 fl (80-97); MONOCYTES % (AUTO) 9.7 % (3-13); PLATELET COUNT 378 10^3/uL (150-450); RED BLOOD COUNT 4.24 10^6/uL (4.35-5.55); RED CELL DISTRIBUTION WIDTH 13.8 % (11.5-14.0); SEGMENTED NEUTROPHILS % (AUTO) 51.3 % (42-78); TOTAL CELLS COUNTED % (AUTO) 100 %; WHITE BLOOD COUNT 9.9 10^3/uL (4.0-10.5)
[2019-12-30 07:36] LABS: ALBUMIN 3.8 g/dL (3.5-5.0); ALKALINE PHOSPHATASE 65 U/L (38-126); ANION GAP 9 (5-19); ASPARTATE AMINO TRANSFERASE 31 U/L (17-59); BILIRUBIN,DIRECT 0.4 mg/dL (0.0-0.4); BILIRUBIN,TOTAL 0.7 mg/dL (0.2-1.3); BLOOD UREA NITROGEN 8 mg/dL (7-20); CALCIUM 9.3 mg/dL (8.4-10.2); CARBON DIOXIDE 23 mmol/L (22-30); CHLORIDE 107 mmol/L (98-107); GLUCOSE 92 mg/dL (75-110); POTASSIUM 4.4 mmol/L (3.6-5.0); TOTAL PROTEIN 6.1 g/dL (6.3-8.2)
[2019-12-30 08:27] VITALS: BP 123/85
--- NOTE | 2019-12-30 09:11 | PDOC PROGRESS REPORT ---
Subjective Progress Note for:: 12/30/19 Subjective:: 29 year old male with no significant past medical history except for alcohol abuse was found unresponsive and CPR was started by the bystander. There is a question about cardiopulmonary arrest. EMS when they did pick him up and gave him Narcan. Initially is apneic then he recovered. In the emergency room is still drowsy and lethargic. Another dose of of Narcan was given. Patient became more alert more awake. Lab investigations indicate 12 WBCs of 28,000, chest x-ray suggestive of pneumonia. Medical consult was requested. CT head was negative. The events prior to the ER arrival like unresponsiveness, apneic state, attempted CPR, possible cardiopulmonary arrest is not presented to me or to Dr. Barksdale by the ER nurse practitioner Cristopher and Dr Rivero when they called to present the case for admission. 12/29/[id number]-mjao-old male admitted with drug overdose. No acute events since admission. Doing well. Patient is on CIWA protocol. 12/30/2019-patient admitted with a drug overdose. No acute events in the last 24 hours. Afebrile. No DTs noticed. Reason For Visit: OPIATE OVERDOSE,ASPIRATION PNEUMONIA,HYPOGLYCEMIA Physical Exam Vital Signs: Temp Pulse Resp BP Pulse Ox 98.1 F 85 15 123/85 97 12/30/19 07:44 12/30/19 07:44 12/30/19 07:44 12/30/19 07:44 12/30/19 07:44 Intake & Output 12/29/19 12/30/19 12/31/19 06:59 06:59 06:59 Intake Total 3440 2340 Balance 3440 2340 Weight 87.1 kg 94.2 kg General appearance: PRESENT: no acute distress, well-developed Head exam: PRESENT: atraumatic Eye exam: PRESENT: PERRLA Mouth exam: PRESENT: moist, tongue midline Teeth exam: PRESENT: poor dentation Neck exam: ABSENT: carotid bruit, JVD, lymphadenopathy, thyromegaly Respiratory exam: PRESENT: decreased breath sounds Pulses: PRESENT: normal dorsalis pedis pul GI/Abdominal exam: PRESENT: normal bowel sounds, soft. ABSENT: distended, guarding, mass, organolmegaly, rebound, tenderness Rectal exam: PRESENT: deferred Extremities exam: PRESENT: full ROM. ABSENT: calf tenderness, clubbing, pedal edema Neurological exam: PRESENT: alert, awake, oriented to person, oriented to place, oriented to time, oriented to situation, CN II-XII grossly intact. ABSENT: motor sensory deficit Psychiatric exam: PRESENT: appropriate affect, normal mood. ABSENT: homicidal ideation, suicidal ideation Results Laboratory Results: 12/30/19 05:25 12/30/19 05:25 12/30/19 12/30/19 05:25 05:25 WBC 9.9 RBC 4.24 L Hgb 14.3 Hct 41.2 MCV 97 MCH 33.8 H MCHC 34.8 RDW 13.8 Plt Count 378 Seg Neutrophils % 51.3 Sodium 138.8 Potassium 4.4 Chloride 107 Carbon Dioxide 23 Anion Gap 9 BUN 8 Creatinine 0.88 Est GFR ( Amer) > 60 Glucose 92 Calcium 9.3 Magnesium 2.0 Total Bilirubin 0.7 AST 31 Alkaline Phosphatase 65 Total Protein 6.1 L Albumin 3.8 12/28/19 12/28/19 12/28/19 05:27 05:27 11:45 Creatine Kinase 325 H CK-MB (CK-2) 5.78 H 16.10 H Troponin I 0.195 0.404 NT-Pro-B Natriuret Pep 12/28/19 12/29/19 12/29/19 17:59 06:20 06:20 Creatine Kinase CK-MB (CK-2) 14.70 H Troponin I 0.416 0.212 NT-Pro-B Natriuret Pep 622 H Impressions: Chest CT 12/28/19 00:00 IMPRESSION: Viral or atypical pneumonia. Chest X-Ray 12/28/19 05:01 IMPRESSION: Suspect small area of right upper lobe pneumonia versus pulmonary contusion. Head CT 12/28/19 07:39 IMPRESSION: NORMAL BRAIN CT WITHOUT CONTRAST. EVIDENCE OF ACUTE STROKE: NO. Assessment and Plan - Diagnosis (1) Aspiration pneumonia Qualifiers: Aspiration pneumonia type: unspecified Laterality: right Lung location: upper lobe of lung Qualified Code(s): J69.0 - Pneumonitis due to inhalation of food and vomit Is this a current diagnosis for this admission?: Yes Plan: 12/28/2019-patient admitted to [facility] for possible aspiration pneumonia. To start him on IV vancomycin and Zosyn. Blood cultures are requested. Pulse ox is 100% on room air at the time of my examination. 12/29/2019-patient admitted with aspiration pneumonia. WBC count is 11,800. Patient is on IV Zosyn and vancomycin. Cultures are negative so far. Plan is to continue the present management at this time. 12/30/19-patient admitted with aspiration pneumonia. WBC count is 11,800 yesterday. On IV Zosyn and vancomycin. Blood cultures are negative. Plan is to change IV antibiotics to p.o. from today. (2) Opiate overdose Qualifiers: Encounter type: initial encounter Injury intent: accidental or unintentional Qualified Code(s): T40.601A - Poisoning by unspecified narcotics, accidental (unintentional), initial encounter Is this a current diagnosis for this admission?: No Plan: 12/28/2019-patient found unresponsive and CPR was started by the bystander there is a possible cardiac arrest. Urine reaction is positive for alcohol and Adderall. Psych consult was requested. (3) Alcohol abuse Is this a current diagnosis for this admission?: Yes Plan: 12/28/2019-patient has history of alcohol abuse and Ativan IV 2 mg every 2 hours as needed for agitation and to watch for the DTs. Counseling was provided. 12/30/2019-patient is on CIWA protocol. On Ativan 2 mg IV every 2 hours as needed for agitation and anxiety. (4) Elevated troponin Is this a current diagnosis for this admission?: Yes Plan: 12/28/2019-initial troponin is 0.19-second troponin 0.4. Elevated troponin most likely secondary to attempt of CPR prior to ER arrival. 12/29/2019-troponin is stable. Elevated troponin most likely secondary to hypoxia, CPR done by the bystander outside the hospital. (5) Hypoxia Is this a current diagnosis for this admission?: Yes Plan: 12/28/2019-patient admitted with acute hypoxic respiratory failure requiring oxygen supplementation initially. Most likely secondary to underlying aspiration pneumonia. Started on IV Zosyn and vancomycin. Pulse ox is 100% on room air at this time. 12/29/2019-acute respiratory failure with hypoxia resolving. Pulse ox is 98% 2 L today. 12/30/2019-patient has a sleep apnea. He is de-satting during sleep. - Time Anticipated Discharge Disposition: Home, Self Care Anticipated Discharge Timeframe: within 48 hours
[2019-12-30] MEDS ORDERED: LEVOFLOXACIN 500 MG TABLET PO SCH (10:00)
[2019-12-30] MEDS: ENOXAPARIN SODIUM INJ 40 MG/0.4 ML DISP.SYRIN SUBCUT SCH (10:07)
[2019-12-30] MEDS: ASPIRIN 325 MG TABLET PO SCH (10:07)
--- NOTE | 2019-12-30 14:19 | Left Against Medical Advice ---
Against Medical Advice Admission Date/Time: 12/28/19 10:31 Primary Care Provider: Date of Patient Emigration: 12/30/19 - Diagnosis: (1) Aspiration pneumonia Is this a current diagnosis for this admission?: Yes (2) Opiate overdose Is this a current diagnosis for this admission?: No (3) Alcohol abuse Is this a current diagnosis for this admission?: Yes (4) Elevated troponin Is this a current diagnosis for this admission?: Yes (5) Hypoxia Is this a current diagnosis for this admission?: Yes - Summary: Summary: Please see Admission and Progress Notes as well. LIAT KOCH JR is a 29 M, who LEFT AGAINST MEDICAL ADVICE. The Patient was admitted on 12/28/19 10:31. 12/30/[id number]-hcgf-old male with history of alcohol abuse found unresponsive and a bystander at the CPR. Brought to the emergency room with altered mental status. Patient was given Narcan twice and started showing improvement. Patient was admitted with [facility] protocol. Denies any suicidal ideation. Patient also found to have aspiration pneumonia treated with IV Zosyn and vancomycin today he was started on levofloxacin 5 mg p.o. daily blood cultures are negative. Plan is to continue the treatment at this time but the patient decided to sign AMA left the hospital. Prior to signing AMA I had a long discussion with the patient and explained to him benefits of staying in the hospital and also risks involved by leaving the hospital he understood and verbalized the response but prefers to take the responsibility and signed the AMA. (1) Aspiration pneumonia Qualifiers: Aspiration pneumonia type: unspecified Laterality: right Lung location: upper lobe of lung Qualified Code(s): J69.0 - Pneumonitis due to inhalation of food and vomit Is this a current diagnosis for this admission?: Yes Plan: 12/28/2019-patient admitted to [facility] for possible aspiration pneumonia. To start him on IV vancomycin and Zosyn. Blood cultures are requested. Pulse ox is 100% on room air at the time of my examination. 12/29/2019-patient admitted with aspiration pneumonia. WBC count is 11,800. Patient is on IV Zosyn and vancomycin. Cultures are negative so far. Plan is to continue the present management at this time. 12/30/19-patient admitted with aspiration pneumonia. WBC count is 11,800 yesterday. On IV Zosyn and vancomycin. Blood cultures are negative. Plan is to change IV antibiotics to p.o. from today. (2) Opiate overdose Qualifiers: Encounter type: initial encounter Injury intent: accidental or unintentional Qualified Code(s): T40.601A - Poisoning by unspecified narcotics, accidental (unintentional), initial encounter Is this a current diagnosis for this admission?: No Plan: 12/28/2019-patient found unresponsive and CPR was started by the bystander there is a possible cardiac arrest. Urine reaction is positive for alcohol and Adderall. Psych consult was requested. (3) Alcohol abuse Is this a current diagnosis for this admission?: Yes Plan: 12/28/2019-patient has history of alcohol abuse and Ativan IV 2 mg every 2 hours as needed for agitation and to watch for the DTs. Counseling was provided. 12/30/2019-patient is on CIWA protocol. On Ativan 2 mg IV every 2 hours as needed for agitation and anxiety. (4) Elevated troponin Is this a current diagnosis for this admission?: Yes Plan: 12/28/2019-initial troponin is 0.19-second troponin 0.4. Elevated troponin most likely secondary to attempt of CPR prior to ER arrival. 12/29/2019-troponin is stable. Elevated troponin most likely secondary to hypoxia, CPR done by the bystander outside the hospital. (5) Hypoxia Is this a current diagnosis for this admission?: Yes Plan: 12/28/2019-patient admitted with acute hypoxic respiratory failure requiring oxygen supplementation initially. Most likely secondary to underlying aspiration pneumonia. Started on IV Zosyn and vancomycin. Pulse ox is 100% on room air at this time. 12/29/2019-acute respiratory failure with hypoxia resolving. Pulse ox is 98% 2 L today. 12/30/2019-patient has a sleep apnea. He is de-satting during sleep. - Time Anticipated Discharge Disposition: Home, Self Care Anticipated Discharge Timeframe: within 48 hours
== END 2019-12-30 13:11 | disposition left against medical advice (07) | DRG 917 ==
LOC: ER 04:06 → EH 10:31 → 3S 12:34
PROVIDERS: ADMIT Hospitalist; ATTEND Internal Medicine
DX: T40.601A Poisoning by unspecified narcotics, accidental (unintentional), initial encounter (principal); J69.0 Pneumonitis due to inhalation of food and vomit; J96.01 Acute respiratory failure with hypoxia; F10.10 Alcohol abuse, uncomplicated; R79.89 Other specified abnormal findings of blood chemistry; G47.30 Sleep apnea, unspecified; F17.210 Nicotine dependence, cigarettes, uncomplicated; Y92.9 Unspecified place or not applicable; Y90.1 Blood alcohol level of 20-39 mg/100 ml; R40.2410 Glasgow coma scale score 13-15, unspecified time; Z82.49 Family history of ischemic heart disease and other diseases of the circulatory system
CPT/HCPCS: 36415; 70450; 71046; 71250; 80053; 80202; 80307; 81001; 82550; 82553; 82962; 83036; 83690; 83735; 83880; 84443; 84484; 85025; 85027; 85730; 87040; 87070; 87077; 87186; 87205; 93005; 93010; 96361; 96365; 96375; 99285; J0295; J1650; J2060; J2310; J2405; J2543; J3370; J3411; J3475; J3480; J3490; J7030; J7050; J7060

== ENCOUNTER 2020-01-01 12:51 | Emergency (ER) | payer SELFPAY ==
[2020-01-01 12:59] VITALS: BP 139/96
--- NOTE | 2020-01-01 14:13 | ER Document Report ---
ED Respiratory Problem - General Chief Complaint: Cough Stated Complaint: COUGH,CONGESTION Time Seen by Provider: 01/01/20 13:39 Primary Care Provider: SEBASTIAN SMALL DO [NO LOCAL MD] - Follow up as needed Mode of Arrival: Ambulatory Information source: Patient Notes: 29-year-old male presents to the emergency room requesting a prescription for antibiotics. Patient was seen and evaluated and admitted last week for questionable drug overdose and aspiration pneumonia. Patient states that he left AMA without getting a prescription for his antibiotics. He offers no other concerns or complaints at this time. No fevers, no shortness of breath, no cough no difficulty breathing. Patient was admitted on 12/27 and left AMA on 12/29. TRAVEL OUTSIDE OF THE [place] IN LAST 30 DAYS: No - Related Data Allergies/Adverse Reactions: No Known Allergies Allergy (Verified 08/29/16 15:02) Past Medical History - General Information source: Patient - Social History Smoking Status: Current Every Day Smoker Frequency of alcohol use: Occasional Drug Abuse: Methamphetamine, Other Family History: Reviewed & Not Pertinent Patient has homicidal ideation: No Pulmonary Medical History: Denies: Hx Asthma Neurological Medical History: Reports: Hx Migraine Renal/ Medical History: Denies: Hx Peritoneal Dialysis Psychiatric Medical History: Reports: Hx Depression Past Surgical History: Reports: Hx Oral Surgery - Immunizations Hx Diphtheria, Pertussis, Tetanus Vaccination: No Review of Systems - Review of Systems Constitutional: No symptoms reported EENT: No symptoms reported Cardiovascular: No symptoms reported Respiratory: No symptoms reported Skin: No symptoms reported Neurological/Psychological: No symptoms reported -: Yes All other systems reviewed and negative Physical Exam - Vital signs Vitals: Temp Pulse Resp BP Pulse Ox 98.1 F 93 16 139/96 H 98 01/01/20 12:57 01/01/20 12:57 01/01/20 12:57 01/01/20 12:57 01/01/20 12:57 - Notes Notes: GENERAL:No acute distress, non-toxic appearance. HEAD: Normal with no signs of head trauma. EYES: PERRLA, EOMI, conjunctiva normal, no discharge. EARS: Hearing grossly intact. NOSE: Normal. THROAT: Oropharynx is normal. No pharyngeal erythema, no pharyngeal exudate. NECK: Normal range of motion, no tenderness, supple, no lymphadenopathy, No adenopathy, no JVD. CHEST: Clear breath sounds bilaterally. No wheezes, rales, or rhonchi. CARDIAC: Regular rate and rhythm. S1 and S2, without murmurs, gallops, or rubs. VASCULAR: No Edema. Peripheral pulses normal and equal in all extremities. ABDOMEN: Normal and soft with no tenderness, no masses or pulsatile masses. No organomegaly. Positive bowel sounds x4. No CVA tenderness noted bilaterally. GASTROINTESTINAL: Bowel sounds normal GENITOURINARY: Normal, No tenderness LYMPATHTIC: No lymphadenopathy noted. MUSCULOSKELETAL: Good range of motion of all major joints. Extremities without clubbing, cyanosis or edema. NEUROLOGICAL: Alert and oriented x 3. No focal sensory or strength deficits. Speech normal. Follows commands appropriately. PSYCHIATRIC: Normal Affect, judgement and mood. SKIN: Normal appearance with no rashes or lesions. Course - Re-evaluation Re-evalutation: 01/01/20 14:35 Negative chest x-ray results were reviewed with the patient. Also reviewed patient's microbiology sputum cultures from when he was in the hospital last week he has MRSA positive. Results had been faxed to Dr. Linda, who I did speak with he recommends if patient is without insurance to give him Bactrim x10 days. If he has insurance and he is to go home on doxycycline. Patient states he does not have insurance and cannot afford a prescription at this time. He will be discharged home on p.o. Bactrim which he is knows he can get for free of problems. His chest x-ray today does not show pneumonia. He was counseled on the importance of outpatient follow-up with a primary care physician if not improving in 2 to 3 days. He was provided with on-call physician. Patient was given strict return to the emergency room guidelines. Return for any new or worsening symptoms. All questions were answered. Patient verbalized understanding and agrees with plan of care. 01/01/20 19:39 - Vital Signs Vital signs: Temp Pulse Resp BP Pulse Ox 98.1 F 93 16 139/96 H 98 01/01/20 12:57 01/01/20 12:57 01/01/20 12:57 01/01/20 12:57 01/01/20 12:57 - Diagnostic Test Radiology reviewed: Reports reviewed Discharge - Discharge Clinical Impression: MRSA (methicillin resistant staph aureus) culture positive Condition: Stable Disposition: HOME, SELF-CARE Instructions: Culture Results ([facility]) Additional Instructions: Your respiratory culture results show that you have MRSA. It is important that you take all antibiotics as prescribed. Recommend outpatient follow-up with a primary care physician if not improving in 2 to 3 days.. Patient was given strict return to the emergency room guidelines. Return for any new or worsening symptoms. All questions were answered. Patient verbalized understanding and agrees with plan of care. Prescriptions: Sulfamethoxazole/Trimethoprim [Bactrim Ds Tablet] 1 tab PO BID #20 tablet Referrals: SEBASTIAN SMALL DO [NO LOCAL MD] - Follow up as needed
--- NOTE | 2020-01-01 14:18 | RADIOLOGY REPORT (SQ) ---
EXAM DESCRIPTION: CHEST SINGLE VIEW IMAGES COMPLETED DATE/TIME: 01/01/2020 2:05 pm REASON FOR STUDY: cough COMPARISON: None. NUMBER OF VIEWS: One view. TECHNIQUE: Single frontal radiographic view of the chest acquired. LIMITATIONS: None. FINDINGS: LUNGS AND PLEURA: No opacities, masses or pneumothorax. No pleural effusion. MEDIASTINUM AND HILAR STRUCTURES: No masses. Contour normal. HEART AND VASCULAR STRUCTURES: Heart normal in size. Normal vasculature. BONES: No acute findings. HARDWARE: None in the chest. OTHER: No other significant finding. IMPRESSION: NO SIGNIFICANT RADIOGRAPHIC FINDING IN THE CHEST. TECHNICAL DOCUMENTATION: JOB ID: [id number] 2010 [employer]- All Rights Reserved Reading location - IP/workstation name: [email or web address]
== END 2020-01-01 15:07 | disposition home or self-care (01) ==
LOC: ER 12:51
DX: A49.02 Methicillin resistant Staphylococcus aureus infection, unspecified site (principal); F17.200 Nicotine dependence, unspecified, uncomplicated; F15.10 Other stimulant abuse, uncomplicated
CPT/HCPCS: 71045; 99283